=== PATIENT | female | born 1990 | race American Indian/Alaskan Native ===

== ENCOUNTER 2017-03-04 20:43 | Emergency (ER) | payer OTHER ==
[~2017-03-04] VITALS: Ht 162.6 cm; Wt 52.2 kg
[~2017-03-04 20:43] MED LIST: VISTARIL50 MG PO
[2017-03-04] MEDS ORDERED: ASMANEX110 MCG INH (20:50)
--- NOTE | 2017-03-05 08:03 | EKG ---
[facility] [address] [facility] [place] [address] Signed Sinus tachycardia Possible Left atrial enlargement Rightward axis Incomplete right bundle branch block Nonspecific T wave abnormality Abnormal ECG No previous ECGs available Confirmed by JEN FLORES MD ([id number]) on 03/05/2017 8:03:38 AM Electronically Signed By: JEN FLORES MD 03/05/17 0803 PATIENT NAME: MEAGHANEL EDGAR Electrocardiogram DATE OF : [birth year] PHYSICIAN: JEN FLORES MD REPORT #: [id number] REPORT IS CONFIDENTIAL AND NOT TO BE RELEASED WITHOUT AUTHORIZATION
[2017-03-05] MEDS ORDERED: HYDROXYZINE HCL25 MG PO (09:20)
== END 2017-03-05 00:27 | disposition home or self-care (01) ==
LOC: ED 20:43
DX: T43.222A Poisoning by selective serotonin reuptake inhibitors, intentional self-harm, initial encounter (principal); J45.909 Unspecified asthma, uncomplicated; F41.9 Anxiety disorder, unspecified; F17.200 Nicotine dependence, unspecified, uncomplicated; Z90.49 Acquired absence of other specified parts of digestive tract; Z79.899 Other long term (current) drug therapy
CPT/HCPCS: 80053; 80176; 81001; 84443; 84703; 85025; 93005; 93010; 96360; 96361; 99283; G0480; J7030

== ENCOUNTER 2017-03-05 09:02 | Emergency (ER) | payer OTHER ==
[~2017-03-05 09:02] MED LIST changes: +ASMANEX110 MCG INH
[2017-03-05] MEDS ORDERED: HYDROXYZINE HCL25 MG PO (09:20)
== END 2017-03-05 10:00 | disposition home or self-care (01) ==
LOC: ED 09:02
DX: F41.9 Anxiety disorder, unspecified (principal); J45.909 Unspecified asthma, uncomplicated; F17.200 Nicotine dependence, unspecified, uncomplicated; Z90.49 Acquired absence of other specified parts of digestive tract; Z79.899 Other long term (current) drug therapy
CPT/HCPCS: 99283

== ENCOUNTER 2017-11-23 14:25 | Inpatient (IN) | payer OTHER ==
[~2017-11-23] VITALS: Ht 167.6 cm; Wt 64.0 kg
[~2017-11-23 14:25] MED LIST changes: +HYDROXYZINE HCL25 MG PO
--- NOTE | 2017-11-23 19:47 | PR ---
[facility] [address] [facility] [place] [facility] [place], [place] [address] Signed Progress Notes IP Datetime Report Generated by CPN: 11/23/2017 19:47 PROGRESS NOTES: [id number] Impression: Normal progression of labor Procedures: Scalp Electrode; Sterile Vag Exam Plan: Continue present management Informed Consent Obtain: Vaginal Delivery VITAL SIGNS: [id number] Vital Signs: Reviewed; Within Normal Limits VS Notable Details: blood pressure elevated - systolic EXAM: [id number] Dilatation: 6.0 Effacement: 95 Station: -2 Uterine Contractions: every one to three minutes MEMBRANES: [id number] Membrane Status: Ruptured Amniotic Fluid Color: Clear Comments: patient progressing Fetus A: [id number] FHR Baseline: 130's Variability: Moderate 6-25bpm Accelerations: 15X15 Decelerations: Early FHR Category: Category I Presentation: Vertex Comments on Fetus A: reactive Fetus B: [id number] Signing Physician: Sivan Lara MD Copies: ~ *Electronically Signed* 11/23/171946 SIVAN LARA MD PATIENT NAME: EL HARDING PROGRESS NOTE DATE OF : [birth year] PHYSICIAN: SIVAN LARA MD RPT #: [id number] REPORT IS CONFIDENTIAL AND NOT TO BE RELEASED WITHOUT AUTHORIZATION
--- NOTE | 2017-11-24 14:11 | PR ---
[facility] [address] [facility] [place] [address] Signed PP Progress Notes Datetime Report Generated by CPN: 11/24/2017 14:11 SUBJECTIVE: [id number] Pain: Within normal limits Nausea/Vomiting: Denies Flatus: Yes Vital Signs: [id number] Vital Signs: Reviewed; Within Normal Limits EXAM: [id number] Cardiovascular: Normal Respiratory: Normal Abdomen/Uterus: Normal Lochia: Normal Vulva/Perineum: Normal Breasts: Normal CVA Tenderness: Normal Extremities: Normal Incision: Not Applicable Progress: Normal IMPRESSION/PLAN/PROCEDURES: [id number] Impression: Normal progression Plan: Continue present management Procedures: None Progress Notes: patient doing well with breast feeding Signing Physician: Sivan Lara MD Copies: ~ *Electronically Signed* 11/24/17 1411 SIVAN LARA MD PATIENT NAME: EL HARDING PROGRESS NOTE DATE OF : [birth year] PHYSICIAN: SIVAN LARA MD RPT #: [id number] REPORT IS CONFIDENTIAL AND NOT TO BE RELEASED WITHOUT AUTHORIZATION
== END 2017-11-26 14:50 | disposition home or self-care (01) | DRG 775 ==
LOC: FBCO 14:25 → FBC 14:40
PROVIDERS: ADMIT Obstetrics & Gynecology
PROC: 0KQM0ZZ Repair Perineum Muscle, Open Approach (ICD-10-PCS; principal; 2017-11-23)
PROC: 10E0XZZ Delivery of Products of Conception, External Approach (ICD-10-PCS; principal; 2017-11-23)
PROC: 00HU33Z Insertion of Infusion Device into Spinal Canal, Percutaneous Approach (ICD-10-PCS; 2017-11-23)
PROC: 3E0R3BZ Introduction of Anesthetic Agent into Spinal Canal, Percutaneous Approach (ICD-10-PCS; 2017-11-23)
DX: O42.02 Full-term premature rupture of membranes, onset of labor within 24 hours of rupture (principal); O76 Abnormality in fetal heart rate and rhythm complicating labor and delivery; Z37.0 Single live birth; O70.1 Second degree perineal laceration during delivery; Z3A.37 37 weeks gestation of pregnancy; O99.344 Other mental disorders complicating childbirth; F41.8 Other specified anxiety disorders; F12.90 Cannabis use, unspecified, uncomplicated
CPT/HCPCS: 01960; 36415; 82565; 84450; 84520; 84550; 85025; 85027; J2550; J2590; J3010; J7120

== ENCOUNTER 2017-11-30 17:25 | Emergency (ER) | payer OTHER ==
[~2017-11-30] VITALS: Ht 167.6 cm; Wt 63.5 kg
[2017-11-30] MEDS ORDERED: HYDROXYZINE HCL25 MG PO (18:33)
== END 2017-11-30 18:50 | disposition home or self-care (01) ==
LOC: ED 17:25
DX: O99.345 Other mental disorders complicating the puerperium (principal); F41.9 Anxiety disorder, unspecified; O99.53 Diseases of the respiratory system complicating the puerperium; J45.909 Unspecified asthma, uncomplicated; Z79.899 Other long term (current) drug therapy
CPT/HCPCS: 99283

== ENCOUNTER 2018-11-30 12:23 | Emergency (ER) | payer OTHER ==
[~2018-11-30] VITALS: Ht 167.6 cm; Wt 63.5 kg
--- OUTSIDE RECORDS SUMMARY | 2018-11-30 12:26 | XMS ---
PreManage Notification: EL HARDING Security Medicare Sales Executive Events No recent Security Events currently on file CRITERIA MET - Group Notification CARE PROVIDERS KAREY HAYNES Primary Care 07/07/2016-Current PHONE: [phone] Andres has no Care Guidelines for this patient. Care History Behavioral 03/15/2017 [facility] PATIENT HAS A BEHAVIORAL HEALTH COUNSELOR THROUGH [facility]. Racheal VISIT COUNT (12 MO.) 2 [facility]. TOTAL 2 NOTE: Visits indicate total known visits. 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
[2018-11-30] MEDS ORDERED: PROMETHAZINE HC25 M1 PO (14:58)
== END 2018-11-30 15:19 | disposition home or self-care (01) ==
LOC: ED 12:23
DX: O20.0 Threatened abortion (principal); Z3A.01 Less than 8 weeks gestation of pregnancy
CPT/HCPCS: 76801; 81001; 84702; 85025; 86900; 86901; 99284-25

== ENCOUNTER 2019-06-23 11:25 | Inpatient (IN) | payer OTHER ==
[~2019-06-23] VITALS: Ht 162.6 cm; Wt 57.0 kg
[~2019-06-23 11:25] MED LIST changes: +PROMETHAZINE HC25 M1 PO
--- NOTE | 2019-06-23 14:43 | PR ---
[facility] [address] [facility] [place], [place] [address] Signed Progress Notes IP Datetime Report Generated by CPN: 06/23/2019 14:43 PROGRESS NOTES: [id number] Impression: Normal progression of labor Procedures: Artificial ROM Plan: Continue present management; Anticipate Vaginal Delivery VITAL SIGNS: [id number] Vital Signs: Reviewed; Within Normal Limits EXAM: [id number] Dilatation: 9.5 Effacement: 90 Station: 0 Uterine Contractions: every 2 minutes MEMBRANES: [id number] Membrane Status: Bulging Amniotic Fluid Color: Clear ROM Note: Buldging bag, easly AROM with moderate clear fluid Comments: Comfortable with Epidutal, doing well. Anticipate delivery soon Fetus A: [id number] FHR Baseline: 125 Variability: Moderate 6-25bpm Accelerations: 15X15 Presentation: Vertex Fetus B: [id number] Signing Physician: Ramon Blair MD Copies: ~ *Electronically Signed* 06/23/19 1443 RAMON BLAIR MD PATIENT NAME: EL HARDING PROGRESS NOTE DATE OF : [birth year] PHYSICIAN: RAMON BLAIR MD RPT #: [id number] REPORT IS CONFIDENTIAL AND NOT TO BE RELEASED WITHOUT AUTHORIZATION
--- NOTE | 2019-06-24 11:44 | PR ---
[facility] [address] [facility] [place] [address] Signed PP Progress Notes Datetime Report Generated by CPN: 06/24/2019 11:43 SUBJECTIVE: [id number] Pain: Within normal limits Nausea/Vomiting: Denies Vital Signs: [id number] Vital Signs: Reviewed; Within Normal Limits Notable Details: PP Hgb/Hct = 10./30.4 EXAM: [id number] Abdomen/Uterus: Normal Lochia: Normal Extremities: Normal IMPRESSION/PLAN/PROCEDURES: [id number] Impression: Normal progression Plan: Continue present management Procedures: None Progress Notes: Doing well, without complaint. Signing Physician: Ramon Blair MD Copies: ~ *Electronically Signed* 06/24/19 1143 RAMON BLAIR MD PATIENT NAME: EL HARDING PROGRESS NOTE DATE OF : [birth year] PHYSICIAN: RAMON BLAIR MD RPT #: [id number] REPORT IS CONFIDENTIAL AND NOT TO BE RELEASED WITHOUT AUTHORIZATION
--- NOTE | 2019-06-24 15:37 | PR ---
[facility] [address] [place], [place] [address] Signed PP Progress Notes Datetime Report Generated by JAKE: 06/24/2019 15:37 SUBJECTIVE: [id number] Pain: Abnormal Pain Comments: c/o back pain, abdominal pain, perineal pain Nausea/Vomiting: Denies Vital Signs: [id number] Vital Signs: Reviewed; Within Normal Limits Notable Details: PP Hgb/Hct = 10./30.4 EXAM: [id number] Abdomen/Uterus: Normal Lochia: Normal Extremities: Normal IMPRESSION/PLAN/PROCEDURES: [id number] Impression: Normal progression Other Impression: PP Depression/Anxiety Plan: Continue present management Procedures: None Progress Notes: Patient wanting increased pain meds, so I came in to evaluate why hurting so much. Patient previously c/o anxiety and has history of anxiety, so was offered Xanax x1 dose, but refused. Patient getting very worked up when I tried to ask exactly what and possibly why is hurting and she refused any examination, asked me to leave room before getting more anxious. Earlier today I had told her that better to take Ibuprofen for pain/cramping and only use Mar Lin occasionally, for breakthrough pain, but patient wanting more narcotics for the anxiety. I tried to explain that normally should not need much narcotics after vaginal delivery, but if having problem, could use intermittently. Patient getting upset with me and seeming to make things worse, so I left room. Will continue to follow. Will consider Psych consult if continued anxiety, agitation. Signing Physician: Zohaib Blair MD Copies: ~ *Electronically Signed* 06/24/19 1537 ZOHAIB BLAIR MD PATIENT NAME: EL HARDING PROGRESS NOTE DATE OF : [birth year] PHYSICIAN: ZOHAIB BLAIR MD RPT #: [id number] REPORT IS CONFIDENTIAL AND NOT TO BE RELEASED WITHOUT AUTHORIZATION
--- NOTE | 2019-06-25 11:36 | PR ---
[facility] [address] [place] [address] Signed PP Progress Notes Datetime Report Generated by CPN: 06/25/2019 11:36 SUBJECTIVE: [id number] Pain: Within normal limits Pain Comments: no c/o pain or anxiety today, feeling better Nausea/Vomiting: Denies Vital Signs: [id number] Vital Signs: Reviewed; Within Normal Limits Notable Details: PP Hgb/Hct = 10./30.4 EXAM: [id number] Abdomen/Uterus: Normal Lochia: Normal Extremities: Normal IMPRESSION/PLAN/PROCEDURES: [id number] Impression: Normal progression Other Impression: PP Depression/Anxiety Plan: Discharge Procedures: None Progress Notes: Doing better today, more calm, but still seems upset with yesterday's visit (but did appologize to me on way out). Patient ready to go home. Signing Physician: Ramon Blair MD Copies: ~ *Electronically Signed* 06/25/19 1136 RAMON BLAIR MD PATIENT NAME: EL HARDING PROGRESS NOTE DATE OF : [birth year] PHYSICIAN: RAMON BLAIR MD RPT #: [id number] REPORT IS CONFIDENTIAL AND NOT TO BE RELEASED WITHOUT AUTHORIZATION
--- NOTE | 2019-06-27 17:12 | PATH ---
[facility] [address] [place], [place] [address] Signed SPECIMEN(S): A PLACENTA SPECIMEN SOURCE: A. PLACENTA CLINICAL HISTORY: Mother's age: 26. OB history: A0. Gestational age: 36, 5. 's weight: 5, 12. score: 89. Rh + (Rhogam no). Antibody screen: Negative. Maternal serologies: RPR negative, hepatitis screen negative, GBS unknown. Specific issues of concern: Abnormal vessels in membranes. Please return to parents when completed. FINAL PATHOLOGIC DIAGNOSIS: Placenta, membranes and umbilical cord: - membranes: Mild acute chorioamnionitis. - Umbilical cord: Three vascular channels identified, no microscopic pathologic diagnosis. - Placenta: 36.5 week third trimester placenta, trimmed weight 423 grams (approximately 45th percentile for given gestational age. - Focal mild calcifications. - Negative for infarct. COMMENT: No membrane vascular anomalies were found on gross exam. Repeat examination on request of Dr. Campbell also showed no gross vascular anomalies. IVELISSEA:cml:C2NR MICROSCOPIC EXAMINATION: Histologic sections of all submitted blocks are examined by light microscopy. These findings, together with the gross examination, support the pathologic diagnosis. GROSS DESCRIPTION: The specimen, labeled "DB, placenta," is received in formalin and consists of lopez discoid placenta with the following parameters: Umbilical cord: Insertion paramarginal, measurement 22.4 x 1.4 cm; trivascular. Cord coiling index (per 10 cm): Four. Lesions: Not grossly identified. Membranes: Insertion site: Marginal, pink and translucent with areas of adherent blood clot, rupture site grossly unremarkable. Intact. Other: Not grossly identified. Chorionic Plate: Normal radiating vascular pattern, blue-purple and shiny. PATIENT NAME: EL HARDING PATHOLOGY DATE OF : [birth year] REPORT #: [id number] PHYSICIAN: RD PATHOLOGY PCP: NO PRIMARY CARE PHYSICIAN REPORT IS CONFIDENTIAL AND NOT TO BE RELEASED WITHOUT AUTHORIZATION [facility] [address] [place], [place] [address] Signed Lesions: Not grossly identified. Other: Not grossly identified. Maternal Surface: Normal cotyledons, fragmented. Lesions: Not grossly identified. Measurement: 16.8 x 15.3 x 3.4 cm. Weight (trimmed): 423 g Cut Surface: Maroon and spongy. Lesions: Focal areas of calcification. Basal plate fibrin 0.1 cm in thickness. Other Findings: Not grossly identified. Patient has requested the specimen back for personal reasons, per requisition. Cassette Summary: (A1) Membranes and umbilical cord (A2) Area of calcification (A3) Placenta parenchyma (A4) Placenta parenchyma. FB (under the direct supervision of a pathologist) The Gross Description was prepared using a voice recognition system. The report was reviewed for accuracy; however, sound-alike word errors, addition and/or deletions may occur. If there is any question about this report, please contact Client Services. PERFORMING LABORATORY: The technical component was performed by [email or web address] [address] (Flatwork Finisher: Avelina Short MD; CLIA# [id number]). [email or web address] [address] [address] (Flatwork Finisher: Braulio Campbell MD; CLIA# [id number]). Diagnostician: Braulio Campbell MD Pathologist Electronically Signed 06/27/2019 Copies: ~ PATIENT NAME: EL HARDING PATHOLOGY DATE OF : [birth year] REPORT #: [id number] PHYSICIAN: RD PATHOLOGY PCP: NO PRIMARY CARE PHYSICIAN REPORT IS CONFIDENTIAL AND NOT TO BE RELEASED WITHOUT AUTHORIZATION
== END 2019-06-25 15:45 | disposition home or self-care (01) | DRG 806 ==
LOC: FBCO 11:25 → FBC 11:55
PROVIDERS: ADMIT General Practice
PROC: 10E0XZZ Delivery of Products of Conception, External Approach (ICD-10-PCS; principal; 2019-06-23)
PROC: 0HQ9XZZ Repair Perineum Skin, External Approach (ICD-10-PCS; 2019-06-23)
PROC: 10907ZC Drainage of Amniotic Fluid, Therapeutic from Products of Conception, Via Natural or Artificial Opening (ICD-10-PCS; 2019-06-23)
PROC: 00HU33Z Insertion of Infusion Device into Spinal Canal, Percutaneous Approach (ICD-10-PCS; 2019-06-23)
PROC: 3E0R3BZ Introduction of Anesthetic Agent into Spinal Canal, Percutaneous Approach (ICD-10-PCS; 2019-06-23)
DX: O60.13X0 Preterm labor second trimester with preterm delivery third trimester, not applicable or unspecified (principal); O99.324 Drug use complicating childbirth; Z37.0 Single live birth; Z3A.36 36 weeks gestation of pregnancy; O70.0 First degree perineal laceration during delivery; O99.52 Diseases of the respiratory system complicating childbirth; J45.909 Unspecified asthma, uncomplicated; F12.90 Cannabis use, unspecified, uncomplicated; O43.893 Other placental disorders, third trimester; O99.344 Other mental disorders complicating childbirth; F32.9 Major depressive disorder, single episode, unspecified; O99.345 Other mental disorders complicating the puerperium; F41.9 Anxiety disorder, unspecified; Z87.891 Personal history of nicotine dependence; Z79.899 Other long term (current) drug therapy; Z86.19 Personal history of other infectious and parasitic diseases
CPT/HCPCS: 01960; 85027; J2540; J2590; J2795; J7120

== ENCOUNTER 2020-04-06 17:57 | Emergency (ER) | payer OTHER ==
[~2020-04-06] VITALS: Ht 162.6 cm; Wt 56.7 kg
--- OUTSIDE RECORDS SUMMARY | 2020-04-06 18:00 | XMS ---
PreManage Notification: EL HARDING Security Fabric Sourcer Events No recent Security Events currently on file CRITERIA MET - Group Notification - [facility] - Has Care Guidelines CARE PROVIDERS There are no care providers on record at this time. Guidelines Source: [employer] [facility] [place] Guidelines Date: 01/15/2020 Care Coordination: Member is not currently enrolled in Mental Health Services through [employer] services. If services are needed through [employer] please call: Marcos [phone] [place]; [phone] Crisis [phone] Care History Behavioral 03/15/2017 [facility] PATIENT HAS A BEHAVIORAL HEALTH COUNSELOR THROUGH [facility]. Racheal VISIT COUNT (12 MO.) 1 [facility]. TOTAL 1 NOTE: Visits indicate total known visits. ED/UCC VISIT TRACKING (12 MO.) 04/06/2020 17:58 [facility] [place] TYPE: Emergency COMPLAINT: - LACERATION, TOES INPATIENT VISIT TRACKING (12 MO.) 06/23/2019 11:55 [facility] OR TYPE: [facility] COMPLAINT: - LABOR DIAGNOSES: - 36 weeks gestation of - Unspecified asthma, uncomplicated - Diseases of the respiratory system complicating childbirth - Personal history of other infectious and parasitic diseases - Other placental disorders, third trimester - Other mental disorders complicating the puerperium - Single live - First degree perineal laceration during delivery - labor second trimester with delivery third tr - Personal history of nicotine dependence - Cannabis use, unspecified, uncomplicated - Drug use complicating childbirth - labor without delivery, third trimester - Major depressive disorder, single episode, unspecified - Anxiety disorder, unspecified - Other flare worker (current) drug therapy - Other mental disorders complicating childbirth [id number]
== END 2020-04-06 19:36 | disposition home or self-care (01) ==
LOC: ED 17:57
DX: S91.311A Laceration without foreign body, right foot, initial encounter (principal); F41.9 Anxiety disorder, unspecified; J45.909 Unspecified asthma, uncomplicated; F17.220 Nicotine dependence, chewing tobacco, uncomplicated; W01.0XXA Fall on same level from slipping, tripping and stumbling without subsequent striking against object, initial encounter; Y92.828 Other wilderness area as the place of occurrence of the external cause
CPT/HCPCS: 73630; 94640; 94664; 99283-25; A9270

== ENCOUNTER 2020-09-09 22:33 | Emergency (ER) | payer OTHER ==
[~2020-09-09] VITALS: Ht 162.6 cm; Wt 56.7 kg
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
== END 2020-09-10 03:46 | disposition home or self-care (01) ==
LOC: ED 22:33
DX: S43.102A Unspecified dislocation of left acromioclavicular joint, initial encounter (principal); S81.011A Laceration without foreign body, right knee, initial encounter; S81.012A Laceration without foreign body, left knee, initial encounter; S91.312A Laceration without foreign body, left foot, initial encounter; R45.851 Suicidal ideations; Y04.8XXA Assault by other bodily force, initial encounter; J45.909 Unspecified asthma, uncomplicated; F17.200 Nicotine dependence, unspecified, uncomplicated
CPT/HCPCS: 12004; 70450; 72125; 73030; 80053; 80176; 84443; 84703; 85025; 99284-25; J2270; J2405

== ENCOUNTER 2020-11-28 11:50 | Emergency (ER) | payer MEDICAID ==
[~2020-11-28] VITALS: Ht 162.6 cm; Wt 55.8 kg
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
[2020-11-28] MEDS ORDERED: ZOLOFT25 MG PO (17:02)
[2020-11-28] MEDS ORDERED: HYDROXYZINE HCL25 MG PO (17:02)
== END 2020-11-28 17:11 | disposition home or self-care (01) ==
LOC: ED 11:50
DX: F41.9 Anxiety disorder, unspecified (principal); F15.10 Other stimulant abuse, uncomplicated; J45.909 Unspecified asthma, uncomplicated; F17.200 Nicotine dependence, unspecified, uncomplicated; Z79.899 Other long term (current) drug therapy
CPT/HCPCS: 80053; 80176; 81001; 84443; 84703; 85025; 96374; 96375; 99283-25; 99406; J2060; J2405; J7030; J7040

== ENCOUNTER 2021-02-08 13:15 | Emergency (ER) | payer OTHER ==
[~2021-02-08] VITALS: Ht 162.6 cm; Wt 55.8 kg
[~2021-02-08 13:15] MED LIST changes: +ZOLOFT25 MG PO
--- OUTSIDE RECORDS SUMMARY | 2021-02-08 13:18 | XMS ---
PreManage Notification: EL JAIN Security Director Process Engineering Events No recent Security Events currently on file CRITERIA MET - Group Notification - [facility] - Has Care Guidelines CARE PROVIDERS [facility] Case Management 04/08/2020-[facility] PHONE: [phone] Guidelines Source: [employer] [facility] Guidelines Date: 01/15/2020 Care Coordination: Member is not currently enrolled in Mental Health Services through [employer]. If services are needed through [employer] please call: Marcos [phone] Jamie/Delio Reza\T\nbsp; [phone] [facility] [phone] Care History Medical/Surgical 04/08/2020 [facility] - PATIENT IS [facility] ELIGIBLE, \T\middot;\T\nbsp; PLEASE REFER PATIENT TO [facility] FOR NON EMERGENT MEDICAL NEEDS. \T\middot;\T\nbsp; [facility] CAN SEE PATIENTS SAME DAY FOR APTS IF PATIENT CALLS FIRST THING IN THE MORNING. Behavioral 03/15/2017 [facility] PATIENT HAS A BEHAVIORAL HEALTH COUNSELOR THROUGH [facility]. E.D. VISIT COUNT (12 MO.) [address] [facility] TOTAL 4 NOTE: Visits indicate total known visits. ED/UCC VISIT TRACKING (12 MO.) 02/08/2021 13:16 [facility] [place] TYPE: Emergency COMPLAINT: - RIGHT HAND INJ 11/28/2020 11:50 [facility] [place] TYPE: Emergency COMPLAINT: - ANXIETY DIAGNOSES: - Other stimulant abuse, uncomplicated - Anxiety disorder, unspecified - Other halfway (current) drug therapy - Nicotine dependence, unspecified, uncomplicated - Unspecified asthma, uncomplicated 09/09/2020 22:34 [facility] [place] TYPE: Emergency [...] body, right knee, initial encounter 04/06/2020 17:58 [facility] [place] TYPE: Emergency [...] visits to display in this time frame [email or web address]
[2021-02-08] MEDS ORDERED: CLEOCIN HCL300 MG PO (15:51)
== END 2021-02-08 16:01 | disposition home or self-care (01) ==
LOC: ED 13:15
DX: L03.113 Cellulitis of right upper limb (principal); J45.909 Unspecified asthma, uncomplicated; F17.200 Nicotine dependence, unspecified, uncomplicated
CPT/HCPCS: 73130; 73200; 80053; 80074; 83605; 85025; 87040; 96365; 99284-25; J0295; Q9967

== ENCOUNTER 2021-06-22 11:34 | Emergency (ER) | payer OTHER ==
[~2021-06-22] VITALS: Ht 162.6 cm; Wt 58.3 kg
[~2021-06-22 11:34] MED LIST changes: +CLEOCIN HCL300 MG PO
--- OUTSIDE RECORDS SUMMARY | 2021-06-22 11:42 | XMS ---
PreManage Notification: EL JAIN Security End User Support Specialist Events No recent Security Events currently on file CRITERIA MET - Group Notification - [facility] - Has Care Guidelines CARE PROVIDERS [facility] Case Management 04/08/2020-[facility] PHONE: [phone] Guidelines Source: [employer] [facility] Guidelines Date: 01/15/2020 Care Coordination: Member is not currently enrolled in Mental Health Services through [employer]. If services are needed through [employer] please call: Marcos [phone] Jamie/Delio Reza\T\nbsp; [phone] [facility] [phone] Care History Behavioral 03/15/2017 [facility] PATIENT HAS A BEHAVIORAL HEALTH COUNSELOR THROUGH [facility]. Medical/Surgical 04/08/2020 [facility] - PATIENT IS [facility] ELIGIBLE, \T\middot;\T\nbsp; PLEASE REFER PATIENT TO [facility] FOR NON EMERGENT MEDICAL NEEDS. \T\middot;\T\nbsp; [facility] CAN SEE PATIENTS SAME DAY FOR APTS IF PATIENT CALLS FIRST THING IN THE MORNING. E.D. VISIT COUNT (12 MO.) [address] [facility] [address] [facility] TOTAL 4 NOTE: Visits indicate total known visits. 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
== END 2021-06-22 14:09 | disposition home or self-care (01) ==
LOC: ED 11:34
DX: S63.501A Unspecified sprain of right wrist, initial encounter (principal); S50.11XA Contusion of right forearm, initial encounter; J45.909 Unspecified asthma, uncomplicated; F17.200 Nicotine dependence, unspecified, uncomplicated; W10.8XXA Fall (on) (from) other stairs and steps, initial encounter
CPT/HCPCS: 73090; 99283; A9270

== ENCOUNTER 2022-09-06 12:27 | Emergency (ER) | payer OTHER ==
[~2022-09-06] VITALS: Ht 162.6 cm; Wt 56.0 kg
--- OUTSIDE RECORDS SUMMARY | 2022-09-06 12:34 | XMS ---
PreManage Notification: EL JAIN Security Vacuum Cleaner Repairer Events No recent Security Events currently on file CRITERIA MET - Group Notification CARE PROVIDERS [facility] Case Management 04/08/2020[facility] PHONE: [phone] Care Guidelines exist for the following facilities: [facility] ( 01/15/2020 ) Care History Medical/Surgical 04/08/2020 [facility] - PATIENT IS [facility] ELIGIBLE, \T\middot;\T\nbsp; PLEASE REFER PATIENT TO [facility] FOR NON EMERGENT MEDICAL NEEDS. \T\middot;\T\nbsp; [facility] CAN SEE PATIENTS SAME DAY FOR APTS IF PATIENT CALLS FIRST THING IN THE MORNING. Behavioral 03/15/2017 [facility] PATIENT HAS A BEHAVIORAL HEALTH COUNSELOR THROUGH [facility]. E.D. VISIT COUNT (12 MO.) [address] [facility] TOTAL 2 NOTE: Visits indicate total known visits. ED/UCC VISIT TRACKING (12 MO.) 09/06/2022 12:27 [facility] TYPE: Emergency COMPLAINT: - ABDOMINAL PAIN 05/17/2022 01:38 [facility] TYPE: Emergency COMPLAINT: - WEAKNESS DIAGNOSES: - Unspecified asthma, uncomplicated - Contact with and (suspected) exposure to COVID-19 - Intentional self-harm by other sharp object, initial encounter - Laceration without foreign body, left lower leg, initial encounter - Alcohol abuse with intoxication, uncomplicated - Nicotine dependence, unspecified, uncomplicated INPATIENT VISIT TRACKING (12 MO.) No inpatient visits to display in this time frame [email or web address]
[2022-09-06] MEDS ORDERED: HYDROXYZINE HCL25 MG PO (15:39)
[2022-09-06] MEDS ORDERED: ONDANSETRON ODT8 MG PO (15:39)
== END 2022-09-06 16:04 | disposition home or self-care (01) ==
LOC: ED 12:27
DX: O99.342 Other mental disorders complicating pregnancy, second trimester (principal); F41.9 Anxiety disorder, unspecified; O99.332 Smoking (tobacco) complicating pregnancy, second trimester; F17.200 Nicotine dependence, unspecified, uncomplicated; Z3A.16 16 weeks gestation of pregnancy
CPT/HCPCS: 81003; 99284; A9270; Q0177

== ENCOUNTER 2023-02-17 23:57 | Inpatient (IN) | payer OTHER ==
[~2023-02-17] VITALS: Ht 162.6 cm; Wt 60.8 kg
[~2023-02-17 23:57] MED LIST changes: +AMOX TR-K CLV1 EAC1 PO; +CYCLOBENZAPRINE10 MG PO; +ONDANSETRON ODT8 MG PO
[2023-02-18 02:26] VITALS: BP 117/70
--- NOTE | 2023-02-19 08:04 | PR ---
[facility] [address] [place], [place] [address] Signed PP Progress Notes Datetime Report Generated by CPN: 02/19/2023 08:03 SUBJECTIVE: [id number] Pain: Within Normal Limits Nausea/Vomiting: Denies Flatus: Yes Bowel Movement: No Vital Signs: [id number] Vital Signs: Reviewed; Within Normal Limits Cardiovascular: Normal Respiratory: Normal Abdomen/Uterus: Normal Lochia: Normal Vulva/Perineum: Not Done Breasts: Not Done CVA Tenderness: Normal Extremities: Normal Incision: Not Applicable Progress: Normal Exam Comments: Fundus firm U-2 nontender IMPRESSION/PLAN/PROCEDURES: [id number] Impression: Normal Progression Plan: Discharge Progress Notes: Pt seen and examined. Doing well. Ambulating, voiding, and tolerating full diet. Lochia minimal but complaining of some increased afterpains and requesting small rx for norco at discharge. . No fevers/chills. No other concerns. Desires d/c home today. Reviewed d/c medications, instructions, and all questions were answered. F/U 2 wks Signing Physician: Sejal Garduno DO Copies: ~ *Electronically Signed* 02/19/23802 SEJAL GARDUNO (DANE) DO PATIENT NAME: EL JAIN PROGRESS NOTE DATE OF : 89 PHYSICIAN: SEJAL GARDUNO) DO RPT #: [id number] REPORT IS CONFIDENTIAL AND NOT TO BE RELEASED WITHOUT AUTHORIZATION
== END 2023-02-19 11:25 | disposition home or self-care (01) | DRG 807 ==
LOC: FBCO 23:57 → FBC 02-18 00:27
PROVIDERS: ADMIT Obstetrics & Gynecology; ATTEND Obstetrics & Gynecology
PROC: 10E0XZZ Delivery of Products of Conception, External Approach (ICD-10-PCS; principal; 2023-02-18)
PROC: 0KQM0ZZ Repair Perineum Muscle, Open Approach (ICD-10-PCS; 2023-02-18)
PROC: 00HU33Z Insertion of Infusion Device into Spinal Canal, Percutaneous Approach (ICD-10-PCS; 2023-02-18)
PROC: 3E0R3BZ Introduction of Anesthetic Agent into Spinal Canal, Percutaneous Approach (ICD-10-PCS; 2023-02-18)
DX: O99.344 Other mental disorders complicating childbirth (principal); Z37.0 Single live birth; Z67.40 Type O blood, Rh positive; O70.1 Second degree perineal laceration during delivery; Z3A.38 38 weeks gestation of pregnancy; F41.9 Anxiety disorder, unspecified; F32.A Depression, unspecified; F43.10 Post-traumatic stress disorder, unspecified; Z79.899 Other long term (current) drug therapy; Z79.891 Long term (current) use of opiate analgesic; Z90.49 Acquired absence of other specified parts of digestive tract; Z87.891 Personal history of nicotine dependence
CPT/HCPCS: 01960; 36415; 85027; 86850; 86900; 86901; A9270; J2590; J2795; J3010; J7121

== ENCOUNTER 2025-05-09 13:35 | Emergency (ER) | payer OTHER ==
[~2025-05-09] VITALS: Ht 157.5 cm; Wt 56.0 kg
[~2025-05-09 13:35] MED LIST changes: +CELEXA10 MG PO; +GABAPENTIN100 MG PO; +HYDROCODON-ACE1 EA11 PO; +LIDODERM1 EACH TOP; +MAGNESIUM100 MG PO; +PREDNISONE20 MG PO; +TRAMADOL HCL50 MG PO
[2025-05-09] MEDS ORDERED: SERTRALINE HCL50 MG PO (14:16)
[2025-05-09 14:35] VITALS: BP 124/92
== END 2025-05-09 14:35 | disposition home or self-care (01) ==
LOC: ED 13:35
DX: F31.89 Other bipolar disorder (principal); F07.81 Postconcussional syndrome; Z79.52 Long term (current) use of systemic steroids; Z79.899 Other long term (current) drug therapy
CPT/HCPCS: 99283